=== PATIENT | male | born 2000 | race Caucasian/White ===

== ENCOUNTER 2021-11-27 21:58 | Emergency (ER) | payer BC, OTHER | END 2021-11-27 23:56 | disposition home or self-care (01) | LOC: CSHERS 21:58 → EEVIPCON 21:58 → CSHERS 23:56 | DX: S00.83XA Contusion of other part of head, initial encounter (principal); M54.2 Cervicalgia; F17.210 Nicotine dependence, cigarettes, uncomplicated; Y04.8XXA Assault by other bodily force, initial encounter | CPT/HCPCS: 70450; 72125 ==

== ENCOUNTER 2021-12-16 14:42 | Emergency (ER) | payer BC, SELFPAY ==
[2021-12-16] MEDS ORDERED: Boostrix 0.5 ML (Tdap) VIAL ONE ×2 (16:12→16:38)
[2021-12-16] MEDS ORDERED: Acetaminophen 500 MG TAB ONE ×2 (16:12→16:38)
== END 2021-12-16 16:42 | disposition home or self-care (01) ==
LOC: CSHERS 14:42
DX: S61.002A Unspecified open wound of left thumb without damage to nail, initial encounter (principal); F17.210 Nicotine dependence, cigarettes, uncomplicated; W22.8XXA Striking against or struck by other objects, initial encounter
CPT/HCPCS: 90471; 90715

== ENCOUNTER 2022-11-06 03:25 | Emergency (ER) | payer BC | END 2022-11-06 04:07 | disposition home or self-care (01) | LOC: CSHERS 03:25 | DX: R07.89 Other chest pain (principal); F41.9 Anxiety disorder, unspecified | CPT/HCPCS: 71045; 93005 ==